=== PATIENT | male | born 2000 | race Caucasian/White ===

== ENCOUNTER 2021-07-12 13:26 | Emergency (ER) | payer BC ==
[~2021-07-12] VITALS: Ht 177.8 cm; Wt 79.4 kg
[2021-07-12 13:30] VITALS: BP_SYST 131
[2021-07-12] MEDS ORDERED: NAPR-1172 PO (15:14)
[2021-07-12] MEDS ORDERED: IBUPROFEN 600 MG TABLET PO ONE (15:15)
[2021-07-12 15:21] VITALS: BP_SYST 131
== END 2021-07-12 15:22 | disposition home or self-care (01) ==
LOC: SED 13:26
DX: S43.101A Unspecified dislocation of right acromioclavicular joint, initial encounter (principal); W18.39XA Other fall on same level, initial encounter; Y93.64 Activity, baseball; Y92.89 Other specified places as the place of occurrence of the external cause; Y99.8 Other external cause status
CPT/HCPCS: 73000-TC; 99283